=== PATIENT | female | born 1960 | race Caucasian/White ===

== ENCOUNTER 2017-04-14 15:00 | Emergency (ER) | payer OTHER, SELFPAY ==
[~2017-04-14] VITALS: Ht 162.6 cm; Wt 67.1 kg
[2017-04-14 15:04] VITALS: BP 152/79
== END 2017-04-14 17:42 | disposition home or self-care (01) ==
LOC: ED 17:05
DX: S70.311A Abrasion, right thigh, initial encounter (principal); R60.0 Localized edema; V03.99XA Pedestrian with other conveyance injured in collision with car, pick-up truck or van, unspecified whether traffic or nontraffic accident, initial encounter; Y93.89 Activity, other specified; Y99.8 Other external cause status; Y92.410 Unspecified street and highway as the place of occurrence of the external cause
CPT/HCPCS: 99284

== ENCOUNTER 2017-04-24 11:35 | Emergency (ER) | payer OTHER ==
[~2017-04-24] VITALS: Ht 162.6 cm; Wt 65.2 kg
[2017-04-24 11:38] VITALS: BP 142/84
== END 2017-04-24 13:32 | disposition home or self-care (01) ==
LOC: ED 13:20
DX: L03.115 Cellulitis of right lower limb (principal)
CPT/HCPCS: 99284

== ENCOUNTER 2018-08-12 08:24 | Outpatient (CLI) | payer OTHER | END 2018-08-12 23:59 | disposition home or self-care (01) | LOC: CFH 08:24 | PROVIDERS: ATTEND Family Medicine | DX: Z12.31 Encounter for screening mammogram for malignant neoplasm of breast (principal) | CPT/HCPCS: 77067 ==